=== PATIENT | male | born 1990 | race Caucasian/White ===

== ENCOUNTER 2020-08-18 12:51 | Emergency (ER) | payer BC ==
[~2020-08-18] VITALS: Ht 175.3 cm; Wt 81.9 kg
[2020-08-18 12:55] VITALS: BP 112/62
== END 2020-08-18 15:51 | disposition home or self-care (01) ==
LOC: ED 15:39
DX: S06.0X0A Concussion without loss of consciousness, initial encounter (principal); V00.328A Other snow-ski accident, initial encounter; Y93.23 Activity, snow (alpine) (downhill) skiing, snowboarding, sledding, tobogganing and snow tubing; Y92.828 Other wilderness area as the place of occurrence of the external cause; Y99.8 Other external cause status
CPT/HCPCS: 70450; 99284